=== PATIENT | male | born 1950 | race Caucasian/White ===

== ENCOUNTER → 2016-09-28 | Outpatient (CLI) | payer MEDICARE ==
[2016-09-28 09:19] LABS: ASPARTATE AMINO TRANSFERASE 22 U/L (15-37); BLOOD UREA NITROGEN 26 mg/dL (7-18)
== END | disposition home or self-care (01) ==
LOC: LAB 08:52
DX: E78.4 Other hyperlipidemia (principal); I20.1 Angina pectoris with documented spasm
CPT/HCPCS: 36415; 80053; 80061